=== PATIENT | male | born 1985 | race Caucasian/White ===

== ENCOUNTER 2018-08-25 11:14 | Emergency (ER) | payer OTHER ==
--- NOTE | 2018-08-25 12:31 | EDM.PDOC ---
ED HPI GENERAL MEDICAL PROBLEM - General Time Seen by Provider: 08/25/18 11:38 Source of Information: Reports: Patient, Other (co-worker) History Limitations: Reports: No Limitations - History of Present Illness INITIAL COMMENTS - FREE TEXT/NARRATIVE: Patient presents with injury to mouth at work. He was prying on a bolt with a socket and breaker bar when something broke or let loose and hit him just above upper lip. He didn't fall or lose consciousness and denies blurry vision or N/ V. He bled quite a bit from the mouth and he noticed there is a cut inside the lip as well. He says last tetanus shot was 2 years ago. - Related Data Allergies Allergy/AdvReac Type Severity Reaction Status Date / Time Penicillins Allergy Unknown Hives Verified 08/25/18 12:12 venom-honey bee Allergy Anaphylactic Verified 08/25/18 12:12 [bee venom (honey bee)] Shock Home Meds: Home Meds . [No Known Home Meds] 04/15/14 [History] Past Medical History - Past Health History Medical/Surgical History: Denies Medical/Surgical History Social & Family History - Caffeine Use Caffeine Use: Reports: Coffee, Soda - Living Situation & Occupation Living situation: Reports: Single Occupation: Employed ED ROS ENT - Review of Systems Review Of Systems: See Below Constitutional: Denies: Fever, Chills, Malaise, Weakness HEENT: Denies: Dental Pain, Ear Discharge, Hearing Loss, Nosebleed, Nose Pain, Throat Pain, Vision Change Respiratory: Denies: Shortness of Breath, Cough Cardiovascular: Reports: Lightheadedness (he was lightheaded for a couple minutes immediately after the incident and noted to be pale in the face; resolved now). Denies: Chest Pain, Syncope Endocrine: Reports: No Symptoms GI/Abdominal: Denies: Abdominal Pain, Nausea, Vomiting : Reports: No Symptoms Musculoskeletal: Denies: Neck Pain, Shoulder Pain, Arm Pain, Back Pain, Hand Pain Skin: Denies: Cyanosis, Jaundice, Mottled, Pallor, Diaphoresis Neurological: Denies: Confusion, Dizziness, Headache, Seizure, Syncope Psychiatric: Denies: Agitation, Anxiety, Confusion ED EXAM, ENT - Physical Exam Exam: See Below Exam Limited By: No Limitations General Appearance: Alert, WD/WN, No Apparent Distress Eye Exam: Bilateral Eye: EOMI, Normal Inspection, PERRL Ears: Normal External Exam, Normal Canal, Hearing Grossly Normal, Normal TMs Nose: Normal Inspection, No Blood Mouth/Throat: Normal Gums, Normal Oropharynx, Normal Teeth, Lip Swelling, Other (There is a small laceration just above right upper lip that does not extend down to the vermilion border or up to the nose. It doesn't appear to penetrate through to the oral cavity but very possibly does as there is a corresponding laceration inside the appears to have been cut on a tooth. No loose teeth on exam.). No: Dental Trauma Head: Normocephalic, Facial Lacerations. No: Scalp Lacerations, Scalp Abrasions , Scalp Ecchymosis, Scalp Hematoma, Facial Abrasions, Facial Ecchymosis Neck: Normal Inspection, Supple, Non-Tender, Full Range of Motion Respiratory/Chest: No Respiratory Distress, Lungs Clear, Normal Breath Sounds, No Accessory Muscle Use Cardiovascular: Regular Rate, Rhythm, No Murmur GI/Abdominal: Normal Bowel Sounds, Soft, Non-Tender, No Organomegaly, No Distention, No Abnormal Bruit Extremities: Normal Inspection, Normal Range of Motion Neurological: Alert, Oriented, CN II-XII Intact, Normal Cognition, No Motor/ Sensory Deficits Psychiatric: Normal Affect, Normal Mood Skin: Warm, Dry, Intact, Normal Color, No Rash ED ENT PROCEDURES - Laceration/Wound Repair Right Upper Mouth Lac/wound length in cm: 1 Appearance: Linear, Clean Distal NVT: Neuro & Vascular Intact Anesthetic Type: Local Local Anesthesia - Lidocaine (Xylocaine): 1% with EPI Local Anesthetic Volume: 1cc Skin Prep: Chlorhexidine (Hibiciens) Suture Size: other (5-0) Suture Type: Nylon, Interrupted, Simple # of Sutures: 2 Sterile Dressing Applied: None Tetanus Status Addressed: Yes Complications: None Course - Re-Assessments/Exams Free Text/Narrative Re-Assessment/Exam: 08/25/18 13:44 Discussed findings and treatment plan. Sutured, as noted in procedures above, using sterile technique throughout. During instillation of local anesthetic patient could taste it in his mouth so the laceration does communicate through to the inner laceration. Closure of the skin lac achieved closer approximation of the inner lac as well which was not sutured. Discussed expectations with patient and he will take Doxycycline for 5 days prophylaxis. 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 Patient tolerated the procedure well and was discharged to home in stable condition. Departure - Departure Time of Disposition: 13:41 Disposition: Home, Self-Care 01 Condition: Good Clinical Impression: Laceration of face Qualifiers: Encounter type: initial encounter Qualified Code(s): S01.81XA - Laceration without foreign body of other part of head, initial encounter - Discharge Information Instructions: Laceration Care, Adult Referrals: Orion Dubois PA-C [Primary Care Provider] - Additional Instructions: 1. Keep wound as clean and dry as possible but good to wash in shower daily. 2. Take antibiotic as directed. 3. Follow up with your PCP in 7-10 days for suture removal; recheck sooner if any problems.
[2018-08-25] MEDS ORDERED: Lidocaine 1% with EPINEPHrine 1:100,000 20 ML MDV INJECT ONE (12:59)
[2018-08-25 17:56] VITALS: BP 156/97
== END 2018-08-25 13:45 | disposition home or self-care (01) ==
LOC: KA.ED 11:14
DX: S01.81XA Laceration without foreign body of other part of head, initial encounter (principal); Z88.0 Allergy status to penicillin; Z88.8 Allergy status to other drugs, medicaments and biological substances; W22.8XXA Striking against or struck by other objects, initial encounter; Y99.0 Civilian activity done for income or pay
CPT/HCPCS: 12011; 99282